=== PATIENT | male | born 1985 | race American Indian/Alaskan Native ===

== ENCOUNTER 2016-09-28 18:22 | Emergency (ER) | payer SELFPAY ==
--- NOTE | 2016-09-28 20:29 | Emergency Department Report ---
ED Recheck HPI - General Chief Complaint: Laceration/Recheck/Suture Stated Complaint: STITCHES REMOVED Time Seen by Provider: 09/28/16 20:03 Source: patient Mode of arrival: Ambulatory Limitations: No Limitations - History of Present Illness Initial Comments: Patient had reported that he had stitches placed at [facility] 2 weeks ago to his left ring finger. Told to return in 7 days to have sutures removed but he didn't get to go back. She denies any redness or swelling or drainage from site. Pain with movement 4 out of 10. No pain at present. Denies any fever or chills. Pressure is 151/105 and patient is without headache, chest pain, shortness of breath or visual deficit. Patient states that he does not have a history of high blood pressure and does not know if she has a family history of high blood pressure. Complaint: suture/staple removal Onset/Timin -: week(s) Initial Visit For: laceration, other (suture) Returns Today for: staple/Stitch removal Symptoms Since Prior Visit: no new symptoms Context: other (suture removal) Associated Symptoms: none Treatments Prior to Arrival: Given Pain Meds on - Related Data Allergies Allergy/AdvReac Type Severity Reaction Status Date / Time No Known Allergies Allergy Unverified 03/27/14 14:52 ED Review of Systems ROS: Stated complaint: STITCHES REMOVED Other details as noted in HPI Comment: All other systems reviewed and negative Constitutional: denies: chills, fever Respiratory: no symptoms reported Cardiovascular: denies: chest pain, palpitations, edema, syncope Musculoskeletal: arthralgia. denies: back pain, joint swelling, myalgia Skin: other (suture removal) Neurological: denies: headache, numbness, paresthesias ED Past Medical Hx - Past Medical History Previous Medical History?: Yes Additional medical history: Finger laceration - Surgical History Past Surgical History?: No - Family History Family history: no significant - Social History Smoking Status: Current Every Day Smoker Substance Use Type: Alcohol ED Physical Exam - General Limitations: No Limitations General appearance: alert, in no apparent distress - Head Head exam: Present: atraumatic, normocephalic, normal inspection - Respiratory Respiratory exam: Present: normal lung sounds bilaterally. Absent: respiratory distress, chest wall tenderness - Cardiovascular Cardiovascular Exam: Present: regular rate, normal rhythm, normal heart sounds - Extremities Exam Extremities exam: Present: normal inspection, full ROM, normal capillary refill , other (patient with good color, movement, sensation temperature to extremities.2+ in all extremities. Normal range of motion.5/5 strength in all extremities.). Absent: tenderness, pedal edema, joint swelling, calf tenderness - Back Exam Back exam: Present: normal inspection, full ROM - Neurological Exam Neurological exam: Present: alert, oriented X3, normal gait, reflexes normal. Absent: motor sensory deficit - Psychiatric Psychiatric exam: Present: normal affect, normal mood - Skin Skin exam: Present: warm, dry, intact, normal color, other (laceration healed with stitches) - Expanded Skin Exam Expanded Distribution of rash: LUE (the left ring finger with speech) Description of rash: Absent: tenderness, erythematous, swelling, discharge ED Course Vital Signs 09/28/16 18:51 Temperature 98.5 F Pulse Rate 62 Respiratory 16 Rate Blood Pressure 151/105 O2 Sat by Pulse 100 Oximetry Vital Signs 09/28/16 09/28/16 18:51 20:48 Temperature 98.5 F Pulse Rate 62 Respiratory 16 Rate Blood Pressure 151/105 Blood Pressure 150/100 [Left] O2 Sat by Pulse 100 Oximetry - Reevaluation(s) Reevaluation #1: 09/28/16 20:48 Patient stable throughout ED stay 09/28/16 20:48 - Procedure Description Procedures done: 6 Sutures removed from left ring finger. Laceration healed and approximated. He tolerated procedure well. ED Recheck MDM - Medical Decision Making ED course: Seen at [facility] 2 weeks ago for laceration. Repaired at [place] and patient was told to return 7 days for removal. Here for suture removal today. See Procedure note on due to for suture removal and also with elevated blood pressure without any diagnosis of high blood pressure. Consultation hypertension and that he should keep a log of his blood pressure and follow-up at [facility] or [facility]. He voiced understanding of discharge instruction and discharged home in stable condition. Critical care attestation.: If time is entered above; I have spent that time in minutes in the direct care of this critically ill patient, excluding procedure time. ED Disposition Clinical Impression: Encounter for removal of sutures, Elevated blood pressure reading without diagnosis of hypertension Disposition: TO HOME OR SELFCARE Is pt being admited?: No Does the pt Need Aspirin: No Condition: Stable Instructions: Suture Removal (ED), Hypertension (ED) Additional Instructions: Take blood pressure daily and record. Follow-up at [place] or [facility] for evaluation. Referrals: [facility] [Outside] - 3-5 Days [facility] [Outside] - 3-5 Days Forms: Work/School Release Form(ED)
[2016-09-28 20:48] VITALS: BP 150/100
== END 2016-09-28 21:05 | disposition home or self-care (01) ==
LOC: ED 18:22
DX: Z48.02 Encounter for removal of sutures (principal); R03.0 Elevated blood-pressure reading, without diagnosis of hypertension; F17.200 Nicotine dependence, unspecified, uncomplicated
CPT/HCPCS: 99281

== ENCOUNTER 2021-08-21 15:47 | Emergency (ER) | payer SELFPAY | END 2021-08-22 16:00 | disposition left against medical advice (07) | LOC: ED 15:47 | DX: S44 Injury of nerves at shoulder and upper arm level (principal); Z53.21 Procedure and treatment not carried out due to patient leaving prior to being seen by health care provider; W45.8XXA Other foreign body or object entering through skin, initial encounter; Y93.89 Activity, other specified; Y92.89 Other specified places as the place of occurrence of the external cause; Y99.8 Other external cause status ==